=== PATIENT | male | born 2000 | race Caucasian/White ===

== ENCOUNTER 2022-08-28 15:48 | Emergency (ER) | payer OTHER ==
[2022-08-28] MEDS: Diphtheria,Pertussis(Acell),Tetanus Vaccine 0.5 ML Syringe IM ONE (17:05)
[2022-08-28] MEDS: Bacitracin/Neomycin/Polymyxin B Oint 0.9 GM U/D Packet TOP ONE (17:07)
== END 2022-08-28 17:14 | disposition home or self-care (01) ==
LOC: CC.ED 15:48
DX: S80.11XA Contusion of right lower leg, initial encounter (principal); Z23 Encounter for immunization; W22.8XXA Striking against or struck by other objects, initial encounter; Y92.89 Other specified places as the place of occurrence of the external cause; Y99.0 Civilian activity done for income or pay
CPT/HCPCS: 73590-RT; 90471; 90715; 99283; 99283-25; A9270-GY